=== PATIENT | female | born 1975 | race Caucasian/White ===

== ENCOUNTER 2021-12-21 14:34 | Emergency (ER) | payer MEDICAID ==
[~2021-12-21] VITALS: Ht 167.6 cm; Wt 62.7 kg
[2021-12-21] MEDS ORDERED: PERTUSS(ACELL),DIPH,TET VAC/PF 0.5 ML SYRINGE IM. ONE (16:00)
[2021-12-21] MEDS ORDERED: LIDOCAINE 1% 10 ML VIAL ID ONE (16:00)
[2021-12-21] MEDS ORDERED: SODIUM CHLORIDE 0.9% 250 ML IRRIG SOLUTION BOTTLE IRRIG ONE (16:00)
[2021-12-21] MEDS ORDERED: AMOX1TAB16 PO (17:37)
[2021-12-21] MEDS ORDERED: IBUP-2070 PO (17:37)
[2021-12-21] MEDS ORDERED: NEOMYCIN/BACITRACIN/POLYMYXIN B OINTMENT PACKET TP ONE (17:45)
[2021-12-21 18:20] VITALS: BP 118/82
== END 2021-12-21 18:44 | disposition home or self-care (01) ==
LOC: EMS 14:34
DX: S61.051A Open bite of right thumb without damage to nail, initial encounter (principal); W54.0XXA Bitten by dog, initial encounter; Y93.89 Activity, other specified; Y92.89 Other specified places as the place of occurrence of the external cause; Y99.8 Other external cause status
CPT/HCPCS: 99283; 90715; 90471; 12001; J3490

== ENCOUNTER 2022-05-30 17:52 | Emergency (ER) | payer MEDICAID ==
[~2022-05-30] VITALS: Ht 160 cm; Wt 59.6 kg
[~2022-05-30 17:52] MED LIST: AMOX1TAB16 PO; IBUP-1492 PO
[2022-05-30 22:11] VITALS: BP 133/79
[2022-05-30 22:11] LABS: COVID AG,FIA SOURCE NASAL SWAB
[2022-05-30 22:32] LABS: INFLUENZA TYPE A NEGATIVE FOR TYPE A (NEGATIVE); INFLUENZA TYPE B NEGATIVE FOR TYPE B (NEGATIVE)
== END 2022-05-30 23:22 | disposition home or self-care (01) ==
LOC: EMS 17:55
DX: J40 Bronchitis, not specified as acute or chronic (principal); Z20.822 Contact with and (suspected) exposure to COVID-19
CPT/HCPCS: 71045; 87804; 99284